=== PATIENT | female | born 1965 | race Caucasian/White ===

== ENCOUNTER 2024-05-22 17:38 | Emergency (ER) | payer OTHER, SELFPAY ==
[2024-05-22 17:42] VITALS: BP 142/89; PULSE 91; TEMP 36.4; O2SAT 100; BMI 21.9
--- NOTE | 2024-05-22 18:01 | ED_ITS ---
HPI HPI - General Adult General Chief complaint: Recheck/Abnormal Lab/Rx Stated complaint: STITCHES REMOVED Time Seen by Provider: 05/22/24 17:43 Source: patient Mode of arrival: walk-in Limitations: no limitations History of Present Illness HPI narrative: Patient is coming to the ER for suture removal visit, she already had the stitches placed almost 7 days ago after she sustained a dog bite to her inner thigh Patient did not finish her antibiotics Related Data Previous Rx's ?Medication ?Instructions ?Recorded bacitracin 500 unit/gram topical 1 applic topical BID #14 grams 05/22/24 ointment Allergies Allergy/AdvReac Type Severity Reaction Status Date / Time No Known Drug Allergies Allergy Verified 05/22/24 17:49 Opioid HPI Opioid Management Most Recent Opioid Data: No Data to Display Review of Systems ROS Status of ROS 10 or more systems reviewed and unremark able except as noted in history and below PFSH PFSH Social History Little interest or pleasure in doing things: not at all Feeling down, depressed, or hopeless: not at all Exam Narrative Exam Narrative: Nurses notes and vital signs reviewed and patient is not hypoxic. General: Well-appearing and in no apparent distress. Skin: Warm, dry, no pallor noted. No rash. Lower extremity exam; on the medial aspect of the right lower extremity the patient have a laceration that is sutured with almost 12 stitches, clean and healing Constitutional Vital Signs, click to edit/add: Last Vital Signs Temp 97.5 F L 05/22/24 17:42 Pulse 91 H 05/22/24 17:42 Resp 18 05/22/24 17:42 BP 142/89 H 05/22/24 17:42 Pulse Ox 100 05/22/24 17:42 O2 Del Method Room Air 05/22/24 17:42 Course Vital Signs Vital signs: Vital Signs Temperature 97.5 F L 05/22/24 17:42 Pulse Rate 91 H 05/22/24 17:42 Respiratory Rate 18 05/22/24 17:42 Blood Pressure 142/89 H 05/22/24 17:42 Pulse Oximetry 100 05/22/24 17:42 Oxygen Delivery Method Room Air 05/22/24 17:42 Temperature 97.5 F L 05/22/24 17:42 Pulse Rate 91 H 05/22/24 17:42 Respiratory Rate 18 05/22/24 17:42 Blood Pressure 142/89 H 05/22/24 17:42 Pulse Oximetry 100 05/22/24 17:42 Oxygen Delivery Method Room Air 05/22/24 17:42 Medical Decision Making MDM Narrative Medical decision making narrative: The patient had the 12 stitches removed Wound is healing well but the patient instructed about finishing her antibiotic Bacitracin for local wound care The patient is to follow up with primary care physician in next 2-3 days or to return to the emergency department should any of the signs or symptoms worsen or new symptoms develop. The patient agrees with the following Diagnosis and Treatment plan and the patient will be discharged home. Discharge Plan Discharge Chief Complaint: Recheck/Abnormal Lab/Rx Clinical Impression: Visit for suture removal Patient Disposition: Home, Self-Care Time of Disposition Decision: 18:00 Condition: Good Prescriptions / Home Meds: New bacitracin 500 unit/gram ointment 1 applic topical BID Qty: 14 0RF Print Language: Nepali Instructions: Stitches Removal (ED)
[2024-05-22 18:16] VITALS: BP 138/88; PULSE 78; O2SAT 98
== END 2024-05-22 18:16 | disposition home or self-care (01) ==
LOC: ER 18:09
PROVIDERS: Emergency Provider Emergency Medicine
DX: S71.111D Laceration without foreign body, right thigh, subsequent encounter (principal); W54.0XXD Bitten by dog, subsequent encounter
CPT/HCPCS: 99283